=== PATIENT | female | born 1940 | race Caucasian/White ===

== ENCOUNTER 2024-06-23 04:28 | Emergency (ER) | payer OTHER, MEDICAID ==
[~2024-06-23] VITALS: Ht 157.5 cm; Wt 70.0 kg
[~2024-06-23 04:28] MED LIST: FERR325T30 PO; SIME80TA PO
[2024-06-23 04:32] VITALS: O2SAT 100
[2024-06-23 05:05] LABS: BASOPHILS % 0.7 % (0.0-2.0); EOSINOPHILS % 1.4 % (0.0-5.0); HEMATOCRIT. 32.8 % (36.0-48.0); HEMOGLOBIN. 10.5 g/dL (12.0-16.0); LYMPHOCYTES % 18.1 % (20.0-50.0); MEAN CORPUSCULAR HGB CONC 32.2 g/dL (31.0-37.0); MEAN CORPUSCULAR VOLUME 93.1 fL (81.0-99.0); MEAN PLATELET VOLUME 7.4 fl (7.4-10.4); NEUTROPHILS % 71.8 % (40.0-76.0); PLATELET 403 x1000/uL (130-400); RED BLOOD CELL COUNT 3.52 mill/uL (4.2-5.4); RED CELL DISTRIBUTION WIDTH 15.6 % (11.6-14.6); WHITE BLOOD COUNT 7.4 x1000/uL (4.5-11.0)
[2024-06-23 05:22] LABS: CHLORIDE 105 mEq/L (98-107); POTASSIUM 4.6 mEq/L (3.5-5.1); SODIUM 136 mEq/L (136-145)
[2024-06-23 05:23] LABS: CALCIUM 9.1 mg/dL (8.7-10.4); CARBON DIOXIDE 23 mEq/L (21-32)
[2024-06-23 05:28] LABS: CREATININE 2.4 mg/dL (0.6-1.0); GLUCOSE 73 mg/dL (70-105); UREA NITROGEN BLOOD 34 mg/dL (9-23)
[2024-06-23 05:29] LABS: TROPONIN I HIGH SENSITIVITY 9 ng/L (3.0-34)
[2024-06-23 05:30] LABS: ALANINE AMINOTRANSFERASE 29 IU/L (10-49); ALBUMIN 3.7 g/dL (3.2-4.8); ASPARTATE AMINOTRANSFERASE 30 IU/L (<34); BILIRUBIN TOTAL 0.3 mg/dL (0.1-1.0); PROTEIN TOTAL 6.6 g/dL (6.0-8.3)
[2024-06-23 05:32] LABS: BILIRUBIN DIRECT < 0.1 mg/dL (<=3.0)
[2024-06-23 05:34] LABS: INR 0.9; PROTHROMBIN TIME 10.5 sec (9.6-11.0)
[2024-06-23 11:20] VITALS: BP 143/42; PULSE 70; RESP 18; TEMP 37.05852; O2SAT 100
== END 2024-06-23 11:28 | disposition home or self-care (01) ==
LOC: ER 04:28
DX: R10.84 Generalized abdominal pain (principal); F03.90 Unspecified dementia, unspecified severity, without behavioral disturbance, psychotic disturbance, mood disturbance, and anxiety; E11.9 Type 2 diabetes mellitus without complications; I10 Essential (primary) hypertension; Z96.641 Presence of right artificial hip joint
CPT/HCPCS: 36415; 71045; 74176; 80048; 80076; 84484; 85025; 99284

== ENCOUNTER 2025-05-19 17:03 | Inpatient (IN) | payer OTHER, MEDICAID ==
[~2025-05-19] VITALS: Ht 157.5 cm; Wt 77.3 kg
[2025-05-19 17:07] VITALS: O2SAT 98
[2025-05-19] MEDS: CALCIUM GLUCONATE 1GM PREMIX 50 ML IV ONE ×2 (18:14→18:15)
[2025-05-19] MEDS: DEXTROSE 50% WATER 50ML SYRINGE IV ONE (18:15)
[2025-05-19] MEDS: INSULIN REGULAR (HUMULIN R) 1000UNITS/10ML VIAL IV ONE (18:16)
[2025-05-19 18:55] LABS: HEMATOCRIT. 29.8 % (36.0-48.0); HEMOGLOBIN. 9.4 g/dL (12.0-16.0); MEAN PLATELET VOLUME 7.3 fl (7.4-10.4); PLATELET 307 x1000/uL (130-400); RED BLOOD CELL COUNT 3.53 mill/uL (4.2-5.4); RED CELL DISTRIBUTION WIDTH 20.1 % (11.6-14.6)
[2025-05-19 19:13] LABS: CREATININE 2.3 mg/dL (0.6-1.0)
[2025-05-19 19:14] LABS: PROTEIN TOTAL 5.6 g/dL (6.0-8.3); TROPONIN I HIGH SENSITIVITY 7 ng/L (3.0-34); UREA NITROGEN BLOOD 31 mg/dL (9-23)
[2025-05-19 19:15] LABS: ASPARTATE AMINOTRANSFERASE 10 IU/L (<34)
[2025-05-19 19:16] LABS: BILIRUBIN TOTAL 0.2 mg/dL (0.1-1.0); PHOSPHORUS 1.4 mg/dL (2.5-4.9)
[2025-05-19] MEDS: KCL 20MEQ/100ML PREMIX 100 ML IV ONE (19:21)
[2025-05-19 19:30] LABS: BAND% 4.0 % (1.0-6.0); LYMPHOCYTES % MANUAL 6.0 % (20.0-60.0); MONOCYTES % MANUAL 6.0 % (2.0-8.0); NEUTROPHILS % MANUAL 84.0 % (45.0-75.0); PLATELET ESTIMATE NORMAL
[2025-05-19 20:38] LABS: BG BASE EXCESS 5.0 mmol/L (-2.0-3.0); BG CARBOXYHEMOGLOBIN 1.2 % (0.5-1.5); BG DEOXYHEMOGLOBIN 2.0 % (0.0-5.0); BG HCO3 ACT 29.3 mmol/L (21.0-28.0); BG METHEMOGLOBIN 0.1 % (0.5-1.5); BG OXYGEN SATURATION 98.0 % (94.0-98.0); BG OXYHEMOGLOBIN 96.7 % (94.0-98.0); BG PCO2 42.0 mmHg (32.0-45.0); BG PH 7.461 (7.350-7.450); BG PO2 97.1 mmHg (83.0-108.0); BG SAMPLE SITE RIGHT RADIAL; BG TOTAL HEMOGLOBIN 10.7 g/dL (12.0-16.0); BG VENT MODE ROOM AIR
[2025-05-19] MEDS: CEFTRIAXONE 1GM/50ML 50 ML IV ONE (21:55)
[2025-05-19] MEDS ORDERED: ACETAMINOPHEN 325MG TABLET PO PRN (23:45)
[2025-05-19] MEDS ORDERED: DOCUSATE SODIUM 100MG CAPSULE PO PRN (23:45)
[2025-05-19] MEDS ORDERED: ONDANSETRON HCL 4MG/2ML INJ IV PRN (23:45)
[2025-05-19] MEDS ORDERED: CLONIDINE 0.1MG TABLET PO PRN (23:45)
[2025-05-19] MEDS ORDERED: IPRATROPIUM/ALBUTEROL 0.5-3(2.5)MG/3ML NEB HHN PRN (23:45)
[2025-05-20] VITALS (13 sets, daily range): BP systolic 80–130; BP diastolic 42–60; PULSE 80–97; RESP 16–19; TEMP 36.1–36.8072; O2SAT 98–100
[2025-05-20] MEDS ORDERED: DEXTROSE 50% WATER 50ML SYRINGE IV PRN
[2025-05-20] MEDS ORDERED: ASPI-1497 PO (00:53)
[2025-05-20] MEDS ORDERED: SODI650T PO (00:53)
[2025-05-20] MEDS ORDERED: LANTUSUD SUBCUT (00:53)
[2025-05-20] MEDS ORDERED: CARV6.2548 PO (00:53)
[2025-05-20] MEDS ORDERED: ATOR20TA65 PO (00:53)
[2025-05-20] MEDS: ACETAMINOPHEN 325MG TABLET PO PRN (04:28)
[2025-05-20 06:20] LABS: HEMATOCRIT. 33.9 % (36.0-48.0); HEMOGLOBIN. 10.7 g/dL (12.0-16.0); MEAN PLATELET VOLUME 7.6 fl (7.4-10.4); PLATELET 342 x1000/uL (130-400); RED BLOOD CELL COUNT 3.96 mill/uL (4.2-5.4); RED CELL DISTRIBUTION WIDTH 20.8 % (11.6-14.6)
[2025-05-20] MEDS: BLOOD SUGAR DIAGNOSTIC STRIP TEST SCH (06:28)
[2025-05-20 06:58] LABS: CREATINE KINASE MB FRACTION 3.2 ng/mL (0.5-3.6)
[2025-05-20 07:00] LABS: TROPONIN I HIGH SENSITIVITY 6 ng/L (3.0-34)
[2025-05-20 07:04] LABS: T4 FREE 1.08 ng/dL (0.89-1.76)
[2025-05-20 07:06] LABS: CREATININE 2.4 mg/dL (0.6-1.0)
[2025-05-20 07:07] LABS: TRIGLYCERIDE 69 mg/dL (0-150); UREA NITROGEN BLOOD 29 mg/dL (9-23)
[2025-05-20 07:08] LABS: ASPARTATE AMINOTRANSFERASE 13 IU/L (<34); LDL CHOLESTEROL 22 mg/dL (5-100); PROTEIN TOTAL 5.9 g/dL (6.0-8.3)
[2025-05-20 07:09] LABS: BILIRUBIN DIRECT < 0.1 mg/dL (<=3.0); BILIRUBIN TOTAL 0.2 mg/dL (0.1-1.0); PHOSPHORUS 1.5 mg/dL (2.5-4.9)
[2025-05-20] MEDS: INSULIN LISPRO 100 UNITS/ML SUBCUT SCH (07:50)
[2025-05-20] MEDS: FOLIC ACID 1MG TABLET PO SCH (08:27)
[2025-05-20] MEDS: MULTIVITAMINS,THER W-MINERALS TABLET PO SCH (08:27)
[2025-05-20] MEDS: FERROUS SULFATE 325MG TABLET PO SCH (08:27)
[2025-05-20] MEDS: FUROSEMIDE 40MG/4ML VIAL IVP SCH (08:27)
[2025-05-20] MEDS: POTASSIUM-SODIUM PHOSPHATE POWDER PACKET PO SCH (08:27)
[2025-05-20] MEDS: MENTHOL/LANOLIN/CALAMINE/ZN OX OINT 71GM TOP SCH (14:00)
[2025-05-20] MEDS: NYSTATIN 100,000 UNITS/GM CREAM 15GM TOP SCH (14:00)
[2025-05-20] MEDS: CEFTRIAXONE 1GM/50ML 50 ML IV SCH (22:56)
[2025-05-21] VITALS: BP 113/51; PULSE 89; RESP 18; TEMP 36.7; O2SAT 100
[2025-05-21 04:00] VITALS: BP 123/62; PULSE 86; RESP 19; TEMP 36.6; O2SAT 100
[2025-05-21] MEDS: HYDROCODONE/ACETAMINOPHEN 5/325MG TABLET PO NR (04:18)
[2025-05-21 08:00] VITALS: BP 105/45; PULSE 81; RESP 17; TEMP 36.2; O2SAT 97
[2025-05-21] MEDS: ASPIRIN 81MG TABLET PO SCH (11:00)
[2025-05-21 11:29] LABS: HEMATOCRIT. 28.7 % (36.0-48.0); HEMOGLOBIN. 9.1 g/dL (12.0-16.0); MEAN PLATELET VOLUME 7.6 fl (7.4-10.4); PLATELET 318 x1000/uL (130-400); RED BLOOD CELL COUNT 3.39 mill/uL (4.2-5.4); RED CELL DISTRIBUTION WIDTH 20.3 % (11.6-14.6)
[2025-05-21 11:39] LABS: TRIGLYCERIDE 104.0 mg/dL (0-150)
[2025-05-21 11:40] LABS: LDL CHOLESTEROL 30.0 mg/dL (5-100)
[2025-05-21 11:44] LABS: T4 FREE 0.91 ng/dL (0.89-1.76)
[2025-05-21 12:00] VITALS: BP 105/44; PULSE 82; RESP 17; TEMP 36.3; O2SAT 99
[2025-05-21 12:18] LABS: HEPATITIS A AB IGM NEGATIVE (Negative); HEPATITIS B CORE AB IGM NEGATIVE (Negative)
[2025-05-21 12:19] LABS: HEPATITIS C AB NON REACTIVE (Neg) (Negative)
[2025-05-21 12:43] LABS: CREATININE 2.8 mg/dL (0.6-1.0); UREA NITROGEN BLOOD 38 mg/dL (9-23)
[2025-05-21 12:45] LABS: PHOSPHORUS 1.5 mg/dL (2.5-4.9)
[2025-05-21 15:16] LABS: EOSINOPHILS % MANUAL 2.0 % (0.0-5.0); LYMPHOCYTES % MANUAL 9.0 % (20.0-60.0); MONOCYTES % MANUAL 3.0 % (2.0-8.0); NEUTROPHILS % MANUAL 86.0 % (45.0-75.0); PLATELET ESTIMATE NORMAL
[2025-05-21 16:00] VITALS: BP 104/53; PULSE 90; RESP 18; TEMP 36.3; O2SAT 100
[2025-05-21 17:15] LABS: LYMPHOCYTES % MANUAL 6.0 % (20.0-60.0); MONOCYTES % MANUAL 8.0 % (2.0-8.0); NEUTROPHILS % MANUAL 86.0 % (45.0-75.0)
[2025-05-21 17:16] LABS: PLATELET ESTIMATE NORMAL
[2025-05-21 20:00] VITALS: BP 151/80; PULSE 110; RESP 21; TEMP 36.3; O2SAT 97
[2025-05-22] VITALS (15 sets, daily range): BP systolic 94–128; BP diastolic 38–60; PULSE 93–113; RESP 16–20; TEMP 35.6–36.3; O2SAT 97–99
[2025-05-22 14:13] LABS: INR 1.1
[2025-05-22 18:49] LABS: LACTATE DEHYDROGENASE 157 IU/L (120-246)
[2025-05-23] VITALS: BP 104/45; PULSE 95; RESP 18; TEMP 36.4; O2SAT 97
[2025-05-23 04:00] VITALS: BP 104/52; PULSE 88; RESP 18; TEMP 36.3; O2SAT 100
[2025-05-23 08:00] VITALS: BP 108/56; PULSE 77; RESP 16; TEMP 35.6; O2SAT 96
[2025-05-23 12:00] VITALS: BP 107/54; PULSE 91; RESP 16; TEMP 36.2; O2SAT 98
[2025-05-23] MEDS: FUROSEMIDE 40MG TABLET PO SCH (14:07)
[2025-05-23 16:00] VITALS: BP 118/68; PULSE 72; RESP 16; TEMP 35.6; O2SAT 96
[2025-05-23] MEDS: DOXYCYCLINE 100MG/100ML 100 ML IV SCH (17:19)
[2025-05-23 20:00] VITALS: BP 129/73; PULSE 54; RESP 19; TEMP 36; O2SAT 97
[2025-05-24] VITALS (16 sets, daily range): BP systolic 92–143; BP diastolic 62–80; PULSE 66–97; RESP 16–18; TEMP 35.6–37.00296; O2SAT 96–100
[2025-05-24] MEDS: DOXYCYCLINE HYCLATE 100MG CAPSULE PO SCH (15:38)
[2025-05-24] MEDS: LINEZOLID 600MG TABLET PO SCH (15:38)
[2025-05-24] MEDS ORDERED: MENT71OI TOP (20:23)
[2025-05-24] MEDS ORDERED: FURO40TA5 PO (20:23)
[2025-05-24 21:22] LABS: PLATELET 383 x1000/uL (130-400); RED BLOOD CELL COUNT 3.55 mill/uL (4.2-5.4); RED CELL DISTRIBUTION WIDTH 21.4 % (11.6-14.6)
[2025-05-24 21:38] LABS: CREATININE 2.8 mg/dL (0.6-1.0); UREA NITROGEN BLOOD 23.0 mg/dL (9-23)
== END 2025-05-24 20:45 | disposition short-term general hospital (02) | DRG 871 ==
LOC: ER 17:03 → 6WST 22:02 → EDBEDREQ 22:10 → EDBEDREQTM 22:10 → ENRESERV 23:02
PROVIDERS: ADMIT Hospitalist; ATTEND Hospitalist
PROC: 5A1D70Z Performance of Urinary Filtration, Intermittent, Less than 6 Hours Per Day (ICD-10-PCS; principal; 2025-05-20)
PROC: 5A1D70Z Performance of Urinary Filtration, Intermittent, Less than 6 Hours Per Day (ICD-10-PCS; 2025-05-22)
PROC: 5A1D70Z Performance of Urinary Filtration, Intermittent, Less than 6 Hours Per Day (ICD-10-PCS; 2025-05-24)
DX: A41.9 Sepsis, unspecified organism (principal); G92.8 Other toxic encephalopathy; N18.6 End stage renal disease; L89.153 Pressure ulcer of sacral region, stage 3; J96.00 Acute respiratory failure, unspecified whether with hypoxia or hypercapnia; I13.2 Hypertensive heart and chronic kidney disease with heart failure and with stage 5 chronic kidney disease, or end stage renal disease; N13.6 Pyonephrosis; J91.8 Pleural effusion in other conditions classified elsewhere; Z99.2 Dependence on renal dialysis; D63.1 Anemia in chronic kidney disease; E11.22 Type 2 diabetes mellitus with diabetic chronic kidney disease; F03.90 Unspecified dementia, unspecified severity, without behavioral disturbance, psychotic disturbance, mood disturbance, and anxiety; E87.1 Hypo-osmolality and hyponatremia; I50.9 Heart failure, unspecified; E83.39 Other disorders of phosphorus metabolism; E87.6 Hypokalemia; Z87.440 Personal history of urinary (tract) infections; Z95.0 Presence of cardiac pacemaker; Z91.158 Patient's noncompliance with renal dialysis for other reason
CPT/HCPCS: 36415; 36600; 71045; 71250; 74176; 76604; 80048; 80053; 80061; 80076; 82375; 82550; 82553; 82728; 82805; 82962; 83036; 83540; 83550; 83605; 83615; 83735; 83880; 84100; 84145; 84439; 84443; 84481; 84484; 85025; 85027; 85379; 86705; 86709; 87077; 87186; 87340; 90935; 92610; 93005; 93306; 96365; 97162; 99291; A4606; J0612; J0696; J1815; J1938; J3480; J3490